=== PATIENT | female | born 1995 | race Two or more races ===

== ENCOUNTER 2022-11-12 22:26 | Emergency (ER) | payer SELFPAY ==
[~2022-11-12] VITALS: Ht 162.6 cm; Wt 75.0 kg
[2022-11-12 22:30] VITALS: BP 106/70
[2022-11-12] MEDS ORDERED: VISCOUS LIDOCAINE 2% 15 ML UDC PO STA (22:39)
[2022-11-12] MEDS ORDERED: ONDANSETRON HCL 4MG/2ML INJ IV STA (22:39)
[2022-11-12] MEDS ORDERED: MAGNESIUM/ALUMINUM HYDROXIDE/SIMETHICONE 30ML UDC PO STA (22:39)
[2022-11-12] MEDS ORDERED: SODIUM CHLORIDE 0.9% 1,000 ML IV ONE (22:45)
[2022-11-12 23:37] LABS: BASOPHILS % 0.1 % (0.0-2.0); EOSINOPHILS % 0.2 % (0.0-5.0); HEMATOCRIT. 41.3 % (36.0-48.0); HEMOGLOBIN. 13.7 g/dL (12.0-16.0); MEAN CORPUSCULAR HEMOGLOBIN 30.7 pg (28.0-32.0); MEAN CORPUSCULAR VOLUME 92.5 fL (81.0-99.0); MEAN PLATELET VOLUME 7.6 fl (7.4-10.4); MONOCYTES % 3.9 % (2.0-8.0); NEUTROPHILS % 79.8 % (40.0-76.0); PLATELET 329 x1000/uL (130-400); RED BLOOD CELL COUNT 4.47 mill/uL (4.2-5.4); RED CELL DISTRIBUTION WIDTH 13.3 % (11.6-14.6)
[2022-11-12 23:41] LABS: CHLORIDE 109 mEq/L (98-107)
[2022-11-12 23:42] LABS: PROTHROMBIN TIME 10.5 sec (9.6-11.0)
[2022-11-12 23:51] LABS: ETHANOL BLOOD 262 mg/dL
[2022-11-13 00:28] LABS: HCG SCREEN NEGATIVE
== END 2022-11-13 00:33 | disposition home or self-care (01) ==
LOC: EDBD 22:26 → ER 22:26
DX: F10.129 Alcohol abuse with intoxication, unspecified (principal); Y90.8 Blood alcohol level of 240 mg/100 ml or more; T51.0X1A Toxic effect of ethanol, accidental (unintentional), initial encounter; Y92.89 Other specified places as the place of occurrence of the external cause
CPT/HCPCS: 36415; 80053; 80320; 83690; 84703; 85025; 85610; 99283; J7030; G0480